=== PATIENT | female | born 1950 | race African-American/Black ===

== ENCOUNTER 2024-11-02 16:46 | Emergency (ER) | payer MEDICARE ==
[~2024-11-02] VITALS: Ht 152.4 cm; Wt 54.0 kg
[2024-11-02 16:48] VITALS: O2SAT 99
[2024-11-02 17:05] VITALS: BP 140/69; PULSE 100; RESP 16; TEMP 36.9; O2SAT 98
== END 2024-11-02 18:11 | disposition home or self-care (01) ==
LOC: ER 16:46
DX: E11.9 Type 2 diabetes mellitus without complications (principal); Z59.01 Sheltered homelessness
CPT/HCPCS: 99281